=== PATIENT | female | born 1960 | race Caucasian/White ===

== ENCOUNTER → 2016-09-27 | Outpatient (CLI) | payer BC ==
[~2016-09-27] MED LIST: AMB10 PO; AMLO-114 PO; ASPI81TA28 PO; ATOR-22 PO; ATV5 PO; BACL10TA PO; CARI350T28 PO; CHN5 PO; CHOL20007 PO; CONJ.6255 PO; DRGTP75 TD; ELET40TA PO; ESTR2TAB PO; ESTRATEST HS PO; HYDR-3983 PO; KAPIDEX PO; NIFE60TA57 PO; OXYC-57 PO; OXYSR40 PO; PRLSR20 PO; SIMV20TA2 PO; SNQ10 PO; ZOLM1TAB3 PO; losartan PO
[2016-09-27 16:32] LABS: BASO % 0.4 %; BASO ABS # 0.04 K/uL (0-0.2); COMPLETE YES; EOS % 3.3 %; HEMATOCRIT 36.7 % (37-47); IG% 0.3 %; LYMPH % 29.8 %; LYMPH ABS # 3.15 K/uL (1.2-3.4); MEAN CELL VOLUME 89.5 fL (80-100); MEAN CORPUSCULAR HEMOGLOBIN 29.8 pg (25-34); MEAN CORPUSCULAR HGB CONC 33.2 g/dl (32-36); MEAN PLATELET VOLUME 9.6 fL (7.4-10.4); MONO % 7.4 %; NEUT % 58.8 %; PLATELET COUNT 400 K/uL (130-400); WHITE BLOOD COUNT 10.57 K/uL (4.8-10.8)
[2016-09-27 16:58] LABS: ALT/SGPT 14 U/L (12-78); AST/SGOT 11 U/L (15-37); BLOOD UREA NITROGEN 5 mg/dl (7-18); BUN/CREATININE RATIO 7.9 (10-20); CARBON DIOXIDE 32 mmol/L (21-32); CHLORIDE 101 mmol/L (98-107); CREATININE 0.61 mg/dl (0.60-1.20); GLUCOSE 80 mg/dl (70-99); POTASSIUM 4.1 mmol/L (3.5-5.1); SODIUM 138 mmol/L (136-145)
[2016-09-27 17:00] LABS: ALB/GLOB RATIO 1.1 (0.9-2); ALKALINE PHOSPHATASE 91 U/L (45-117)
[2016-09-27 17:58] LABS: URINE APPEARANCE CLEAR (CLEAR); URINE BILIRUBIN NEG (NEG); URINE COLOR YELLOW; URINE EPITHELIAL CELL AUTO >30 /lpf (0-5); URINE NITRITE NEG (NEG); URINE SPECIFIC GRAVITY 1.012 (1.000-1.030); UROBILINOGEN NEG (NEG)
[2016-09-27 18:24] LABS: MANUAL MICROSCOPIC REQUIRED? NO; REVIEW REQ? NO
[2016-10-03 02:35] LABS: ANTI-CENTROMERE AB <1.0 NEG AI (<1.0 NEG); ANTI-SS-A <1.0 NEG AI (<1.0 NEG); ANTI-SS-B <1.0 NEG AI (<1.0 NEG); DNA ds CRITHIDIA NEGATIVE (NEGATIVE); Sm Antibody <1.0 NEG AI (<1.0 NEG)
[2016-10-03 13:25] LABS: ANA TITER > OR = 1:1280 TITER (<1:40)
== END | disposition home or self-care (01) ==
LOC: C.LAB1850 15:22
PROVIDERS: ATTEND Internal Medicine Rheumatology
DX: M79.7 Fibromyalgia (principal); E55.9 Vitamin D deficiency, unspecified; R76.8 Other specified abnormal immunological findings in serum; R77.8 Other specified abnormalities of plasma proteins; M85.80 Other specified disorders of bone density and structure, unspecified site

== ENCOUNTER → 2016-11-06 | Outpatient (CLI) | payer BC | END | disposition home or self-care (01) | LOC: C.PAPS 15:25 | PROVIDERS: ATTEND Obstetrics & Gynecology | DX: Z01.419 Encounter for gynecological examination (general) (routine) without abnormal findings (principal) ==

== ENCOUNTER → 2017-10-21 | Outpatient (CLI) | payer BC ==
[~2017-10-21] MED LIST changes: -ATV5 PO; -BACL10TA PO; -CARI350T28 PO; -CONJ.6255 PO; -DRGTP75 TD; -ELET40TA PO; -ESTRATEST HS PO; -KAPIDEX PO; -NIFE60TA57 PO; -OXYC-57 PO; +TIZA4CAP PO
--- NOTE | 2017-10-22 15:13 | MAMMOGRAPHY REPORT ---
BILATERAL DIGITAL SCREENING MAMMOGRAM TOMOSYNTHESIS WITH CAD: 10/21/2017 CLINICAL HISTORY: Routine screening. Patient has no complaints. TECHNIQUE: Breast tomosynthesis in addition to standard 2D mammography was performed. Current study was also evaluated with a Computer Aided Detection (CAD) system. COMPARISON: Comparison is made to exams dated: 10/18/2016 mammogram, 01/11/2014 mammogram, 12/26/2012 ma mmogram, 12/26/2011 mammogram, 12/25/2010 mammogram, and 12/22/2009 mammogram - [facility] ter. BREAST COMPOSITION: The tissue of both breasts is extremely dense, which lowers the sensitivity of m ammography. FINDINGS: The parenchymal pattern is unchanged. No developing mass, architectural distortion or clus ter of suspicious microcalcifications is seen in either breast. IMPRESSION: ACR BI-RADS CATEGORY 2: BENIGN There is no mammographic evidence of malignancy. A 1 year screening mammogram is recommended. The pa tient will receive written notification of the results. Approximately 10% of breast cancers are not detected with mammography. A negative mammographic report should not delay biopsy if a clinically suggestive mass is present. Genie Evans M.D. ay/:10/21/2017 16:06:24 Secondary Market Manager: Miranda DOUGHERTY(R)(M), [facility] letter sent: Normal 1/2 BI-RADS Code: ACR BI-RADS Category 2: Benign
== END | disposition home or self-care (01) ==
LOC: C.MAMM 11:50
PROVIDERS: ATTEND Obstetrics & Gynecology
DX: Z12.31 Encounter for screening mammogram for malignant neoplasm of breast (principal)

== ENCOUNTER → 2018-01-16 | Outpatient (CLI) | payer BC ==
[~2018-01-16] MED LIST changes: -AMLO-114 PO; +AMLO10TA3 PO; +CARI350T28 PO; -HYDR-3983 PO; -OXYSR40 PO
[2018-01-16 12:45] LABS: BASO % 0.7 %; BASO ABS # 0.05 K/uL (0-0.2); EOS % 1.9 %; EOS ABS # 0.13 K/uL (0-0.5); HEMOGLOBIN 14.3 g/dL (12.0-16.0); IG# 0.01 K/uL (0.00-0.02); LYMPH % 41.4 %; MEAN CELL VOLUME 87.3 fL (80-100); MEAN CORPUSCULAR HEMOGLOBIN 29.7 pg (25-34); MEAN PLATELET VOLUME 9.8 fL (7.4-10.4); MONO % 8.9 %; MONO ABS # 0.62 K/uL (0.11-0.59); NEUT ABS # 3.29 K/uL (1.4-6.5); PLATELET COUNT 314 K/uL (130-400); RED CELL DISTRIBUTION WIDTH CV 15.8 % (11.5-14.5); RED CELL DISTRIBUTION WIDTH SD 50.6 fL (36.4-46.3)
[2018-01-16 13:37] LABS: ALKALINE PHOSPHATASE 80 U/L (45-117); ALT/SGPT 31 U/L (12-78); CREATININE 0.65 mg/dl (0.60-1.20); TOTAL PROTEIN 7.2 gm/dl (6.4-8.2)
[2018-01-16 13:42] LABS: AST/SGOT 22 U/L (15-37)
[2018-01-20 15:10] LABS: ANA SCREEN TC 249X POSITIVE (NEGATIVE); ANTI-SS-A <1.0 NEG AI (<1.0 NEG); ANTI-SS-B <1.0 NEG AI (<1.0 NEG); COMPLEMENT C4** TC 44982E 19 MG/DL (15-57)
[2018-01-22 08:26] LABS: ANA TITER > OR = 1:1280 TITER (<1:40)
== END | disposition home or self-care (01) ==
LOC: C.LAB1850 11:29
PROVIDERS: ATTEND Internal Medicine Rheumatology
DX: E55.9 Vitamin D deficiency, unspecified (principal); R76.8 Other specified abnormal immunological findings in serum; M85.80 Other specified disorders of bone density and structure, unspecified site; M34.1 CR(E)ST syndrome

== ENCOUNTER → 2018-01-31 | Day surgery (SDC) | payer BC ==
[2018-01-28 16:08] VITALS: BMI 23.0
--- NOTE | 2018-01-30 14:35 | History and Physical ---
History & Physical Date of Service Jan 30, 2018. History & Physical Chief Complaint rm#[id number] here for discussion about poss aorto bifem, [place] History of Present Illness I the pleasure of seeing Mrs. Gunderson today for evaluation of her lower extremity pain. 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 Since then she is developed claudication symptoms in her lower extremity on both sides. She claims that that very short distances of approximately 15 feet. If she walks a block she has to stop 3 times. She describes the pain as a burning pain that starts in her legs and goes up to her buttock. Both sides are the same in intensity. She also says that the burning pain occurs while standing at home. She does claim that she does get the burning pain in the morning when she gets up out of bed and sometimes is present at night. She denies any ulcerations of her feet she denies any significant symptoms of rest pain. She has had multiple workup for this problem. She was scheduled for an aortobifemoral bypass at another institution. She also gives a history of fibromyalgia, scleroderma, and Raynaud's. She has had a cardiac workup recently which was negative for significant coronary disease. Review of Systems 10 system review of system was asked. Only positive findings were intolerance to cold joint swelling heartburn in the history of present illness complaints. Physical Exam Vitals & Measurements HR: 103 (Monitored) BP: 162/74 SpO2: 99% WT: 60.9 kg Physical exam: The patient is awake oriented x3 she is in no apparent distress she has normal body habitus. Her blood pressure is 162/74 in the right 156/70 in the left. Head and neck within normal limits there are no carotid bruits lungs are clear. Heart had a regular rate and rhythm. Abdominal exam is benign. There is noaneurysmal dilatation of the aorta. Her femoral pulses are +2 bilaterally. Dorsalis pedis are +2 bilaterally. The posterior tibial pulses are +1 bilaterally. There is good capillary refill in both feet. There is no significant neurological deficits either lower extremity. Assessment/Plan 1.Aorto-iliac atherosclerosis Plan: At this point in time I am not sure an aortobifemoral bypass would benefit this patient. Her pertinent findings from her previous workup was a significant drop in pressure after her walking treadmill. She dropped from a 0.85 index to an index in the 0.4 range. This was seen on both sides. She also has an SMA stenosis which may have worsened over the last few years but gives no signs of abdominal complaints consistent with mesenteric ischemia. In view of her walking treadmill findings I believe the best thing would be to do an arteriogram of her abdominal aorta and runoffs. We will also measure pressures in the left iliac system. If there is a focal stenosis in the left iliac he may benefit from stent placement. If there is significant drop off sooner her aortic pressures during the pull-through then she may benefit from the aortobifemoral bypass. We will make a decision on what the best approach to this patient either surgically, endovascularly, or just observation after the arteriograms performed. Thank you very much for letting us participate in the care of this patient. Sincerely, LINDA Kwok MD Problem List/Past Medical History Ongoing Aorto-iliac atherosclerosis CREST syndrome Hyperlipidemia Hypertensive disorder Systemic sclerosis Tobacco abuse Historical No qualifying data Procedure/Surgical History Esophagogastroduodenoscopy (04/09/2012), Cholecystectomy planned (2010), Laparoscopy (07/13/2009), Colonoscopy (2008), Esophagogastroduodenoscopy (06/14/2009), Esophagogastroduodenoscopy (2003 ), Cervical vertebral fusion. (2001), Hysterectomy (1999). Medications Inpatient No active inpatient medications Home acetaminophen-HYDROcodone 325 mg-7.5 mg oral tablet, 1 tab, PO, qid, PRN Ambien 10 mg oral tablet, 10 mg= 1 tab, PO, qhs , PRN aspirin 81 mg oral delayed release tablet, 81 mg= 1 tab, PO, Daily doxepin 100 mg oral capsule, 100 mg= 1 cap, PO, qhs estradiol 1 mg oral tablet, 1 mg= 1 tab, PO, Daily losartan 100 mg oral tablet, 100 mg= 1 tab, PO, Daily Norvasc 5 mg oral tablet, 5 mg= 1 tab, PO, Daily omeprazole 40 mg oral delayed release capsule, 40 mg= 1 cap, PO, Daily Soma 350 mg oral tablet, 350 mg= 1 tab , PO, 5x/Day Vitamin D3 5000 intl units oral tablet, 5000 Int_Unit= 1 tab, PO, Daily Zomig 5 mg oral tablet, 5 mg= 1 tab, PO, ONCE, PRN Allergies Imitrex ( severe headache) Family History Brain cancer..: Father. Diabetes: Mother. Electronic Signature on File Electronically Reviewed/Signed by: Raghav Kwok MD Author Signature Dt/Tm: 11:12 AM [employer] Manager Surendra Sheehan [facility] [place], [address] [place] [address] EJS Result Type: Physician Consult Date of Service: January 23, 2018 11:12 EDT Authorization Status: Final Subject: Consult Note Author or Import Date: MD Kwok Eugene J on January 23, 2018 11:12 EDT Verified By: MD Kwok Eugene J on January 23, 2018 11:12 EDT Encounter info: [id number], [facility], Clinic, 01/23/2018 - 01/23/2018
[~2018-01-31] VITALS: Ht 160 cm; Wt 59.1 kg
[2018-01-31] VITALS (7 sets, daily range): BP systolic 117–164; BP diastolic 58–95; PULSE 77–86; TEMP 36.4–36.5; O2SAT 98–100; Ht 160 cm; Wt 59.1 kg
[~2018-01-31] MED LIST changes: -AMB10 PO; +ATROPINE SULFATE 0.1 MG/ML 5ML SYR IV PRN; +BTLAI; +CEFAZOLIN 1000MG IV PUSH 7.5 ML IV SCH; -CHN5 PO; -CHOL20007 PO; +CHOLCAP5 PO; +CLINDAMYCIN 600 MG/54 ML D5W IV SCH; +CLINDAMYCIN IV 600 MG in DEXTROSE 5% 50ML 50 ML IV ONE; +DOXE100C4 PO; +EpHEDrine SULFATE INJ 50 MG/ML AMP IV PRN; +FENTANYL CITRATE INJ 50 MCG/1 ML 2 ML VIAL IV PRN; +FENTANYL CITRATE INJ 50 MCG/1 ML 2 ML VIAL ONE; +HEPARIN SOD (PORCINE) 1000 UNIT/ML 10 ML VIAL ONE; +HYDR-3983 PO; +HYDROCODONE/ACETAMIN 5/325MG TAB PO PRN; +IODIXANOL (VISIPAQUE) 270 MG/ML 150ML IV ONE; +KETAMINE HCL INJ 50 MG/ML 10 ML VIAL ONE; +LACTATED RINGER'S 1000ML 1,000 ML IV SCH; +LIDOCAINE HCL 1% 20 ML VIAL SQ ONE; +LIDOCAINE HCL 2% 2 ML VIAL (20MG/ML) ONE; +LOSA1TAB38 PO; +MIDAZOLAM HCL 1 MG/ML 2ML VIAL ONE; +ONDANSETRON INJ 2 MG/ML 2 ML VIAL IV PRN; +PROPOFOL IV EMULSION 10 MG/ML 20 ML VIAL ONE; -SNQ10 PO; +SODIUM CHLORIDE 0.9% 1000ML IV SCH; -TIZA4CAP PO; -ZOLM1TAB3 PO; +ZOLP10TA PO; -losartan PO
[2018-01-31 06:18] LABS: PTT PATIENT 29.8 SECONDS (21.0-31.0)
[2018-01-31 06:51] LABS: CALCIUM 8.8 mg/dl (8.5-10.1); CREATININE 0.6 mg/dl (0.60-1.20); POTASSIUM 3.8 mmol/L (3.5-5.1)
--- NOTE | 2018-01-31 06:54 | DIAGNOSTIC IMAGING REPORT ---
CHEST 2 VIEWS ROUTINE CLINICAL HISTORY: 57 years-old Female presenting with PREOPERATIVE EXAM. TECHNIQUE: PA and lateral views of the chest were obtained. COMPARISON: 07/13/2009. FINDINGS: Atherosclerosis of the aortic arch. Cardiac silhouette normal in size. Pleural-parenchymal scarring at the apices has increased from prior. There is also suggestion of greater than expected opacity in the region of the right upper lung, which is most prominent on lateral view. No pleural effusion or pneumothorax. Degenerative changes of the thoracic spine. Cholecystectomy clips noted. IMPRESSION: 1. Increased pleural-parenchymal scarring at the apices with suggestion of a right upper lobe infiltrate. Further evaluation with chest CT to be considered. The report will be called/faxed according to standard departmental protocol. Electronically signed by: Bladimir Mendes M.D. 01/31/2018 6:53 AM Dictated Date/Time: 01/31/2018 6:51 AM
--- NOTE | 2018-01-31 07:51 | History & Physical Bridge Note ---
H&P Re-Evaluation Bridge Note: I have examined the patient, reviewed the History & Physical and in the interval since the performance of the History & Physical I have noted the following changes of clinical significance: No changes noted
--- NOTE | 2018-01-31 09:02 | [facility] Post Operative Brief Note ---
Immediate Operative Summary Operative Date Jan 31, 2018. Pre-Operative Diagnosis Claudication, Left Iliac Artery Stenosis. Post-Operative Diagnosis Claudication. Procedure(s) Performed Aortogram With Bilateral Run Off, Mechanical Closure of Left Femoral Artery. Surgeon Dr. Kwok Puffer Tender Surgeon(s) Linda Washburn MD Estimated Blood Loss 5 Findings Consistent with Post-Op Diagnosis Specimens None Drains None Anesthesia Type MAC Complication(s) none Disposition Accompanied Pt To Recover: no Disposition: Recovery Room / PACU
--- NOTE | 2018-01-31 09:03 | Discharge Instructions ---
Discharge Instructions Date of Service Jan 31, 2018. Visit Reason for Visit: Aorto Iliac Occlusive Disease Discharge Discharge Diagnosis / Problem: Claudication Discharge Goals Goal(s): Diagnostic testing Activity Recommendations Activity Limitations: per Instructions/Follow-up section Anesthesia . Post Anesthesia Instructions: If you have had General Anesthesia or IV Sedation: * Do not drive today. * Resume driving when surgeon permits. * Do not make important decisions or sign legal documents today. * Call surgeon for: 1. Temperature elevations greater than 101 degrees F. 2. Uncontrollable pain. 3. Excessive bleeding. 4. Persistent nausea and vomiting. 5. Medication intolerance (nausea, vomiting or rash). * For nausea and vomiting use only clear liquids such as: tea, soda, bouillon until nausea subsides, then gradually increase diet as tolerated. * If you have any concerns or questions, call your surgeon's office. If physician is unavailable and it is an emergency, call 911 or go to the nearest emergency room. . Instructions / Follow-Up Instructions / Follow-Up Call [phone] to schedule a follow up appointment if one not already scheduled. SPECIAL CARE INSTRUCTIONS: Medications: * Continue to take your medications as directed. If you have been given a prescription for Plavix, please fill it immediately and take as directed. Incision Care: * Your puncture site may have some bruising and minor swelling for about one week. * You will have a small dressing covering your puncture site. You may remove the dressing after 24 hours and shower. You may let the warm soapy water run over it, but be sure to dry the puncture site well and keep it dry. * DO NOT IMMERSE THE INCISION IN A TUB/POOL/etc. UNTIL HEALED. * Puncture sites should be kept covered with a band-aid until it begins to heal. Restrictions: * Depending on whether you leg or arm was punctured to access the arteries, you will be required to lay flat, hold your arm still, or both, for about 4 hours after the procedure to prevent bleeding. * Limit your activity for the first 48 hours. You may walk and go up and down steps. Avoid excessive bending or movement at the puncture site. Possible Complications: * Excessive Swelling - after blood flow is improved you may notice increased swelling in the lower legs. This is a normal response. This usually depends on the amount of blockages in the leg, how long they have been there prior to your procedure and how much blood flow was restored. Elevating your legs will help to improve this. Please notify our office ([phone] ) if the swelling does not go away after lying in bed overnight. * Infection/Drainage/Bleeding - Drainage or bleeding from the puncture site should be minimal. If you have excessive bleeding or drainage, call our office ([phone]) right away. * Pain - You may experience some mild pain or soreness at your puncture site. If your pain does not improve, please contact our office ([phone]). Call your doctor and seek emergent treatment if you develop: * Temperature above 101 degrees * Any fever or chills * Any redness or purulent drainage from the puncture site * Any new dusky/blue colored toes or feet with coolness or sharp or aching pain. SKIN IRRITATION: * You may experience some redness and/or swelling in the area where radiation was administered. If any skin irritation occurs, please contact your family physician. FOLLOW UP VISIT: Keep any scheduled doctor appointments. Diet Recommendations Recommended Home Diet: resume previous diet Procedures Procedures Performed: Aortogram With Bilateral Run Off, Mechanical Closure of Left Femoral Artery. Pending Studies Studies pending at discharge: no Medical Emergencies . Who to Call and When: Medical Emergencies: If at any time you feel your situation is an emergency, please call 911 immediately. . Non-Emergent Contact Non-Emergency issues call your: Surgeon . . "Provider Documentation" section prepared by Raghav Kwok. .
--- NOTE | 2018-01-31 09:13 | [facility] Operative Report ---
Operative Report Operative Date Jan 31, 2018. Pre-Operative Diagnosis Claudication, Left Iliac Artery Stenosis. Post-Operative Diagnosis Claudication. Procedure(s) Performed Aortogram With Bilateral Run Off, Mechanical Closure of Left Femoral Artery. Surgeon Dr. Kwok Plumbing Drafter Surgeon(s) Linda Washburn MD Estimated Blood Loss 5 Findings No significant stenosis in aorta, left iliac or femoral-femoral artery bypass. 3 vessel runoff bilaterally. Specimens None Drains None Anesthesia Type MAC Complication(s) none Disposition Recovery Room / PACU Indications The patient is a 57 year old female who presents with bilateral lower extremity short distance claudication. She is status post left to right femoral-femoral bypass in 2014 performed in [place]. The risks, benefits and alternatives of the procedure were discussed with her and she agreed to proceed. Description of Procedure The patient was brought to the angio suite and placed in the supine position. She was given preoperative antibiotics with Clindamycin. Local anesthesia was administered. The left common femoral artery was accessed under ultrasound guidance distal to the site of the femoral-femoral bypass. A 5 Fr sheath was placed. An 0.035 angled glidewire was easily advanced to the aorta. A 5 Fr Merit pigtail catheter was placed in the aorta and aortogram was completed with power injection. The bilateral renal arteries showed no evidence of stenosis. Known occlusion of the right common iliac artery. No significant stenosis of aorta or left common and external iliac. Bilateral runoff was completed which showed no stenosis of the femoral-femoral bypass and 3 vessel runoff to the feet bilaterally. The pigtail catheter was removed. A 5 Fr straight glide cath was inserted and pullback pressures were measured which showed no significant drop in pressures through the aorta into the left iliac artery. The catheter and sheath were removed. The puncture site was closed with the Starclose device which partially closed. Pressure was held over the left femoral artery and hemostasis was achieved. The patient tolerated the procedure well and was brought to the PACU in good condition. Dr. Kwok was present and scrubbed for the entire procedure. I attest to the content of the Intraoperative Record and any orders documented therein. Any exceptions are noted below.
--- NOTE | 2018-01-31 09:38 | Anesthesiology Progress Note ---
Anesthesia Post Op Note Date & Time Jan 31, 2018 at 09:38 Vital Signs Pain Intensity: 0 Vital Signs Past 12 Hours Date Time Temp Pulse Resp B/P (MAP) Pulse Ox O2 Delivery O2 Flow Rate FiO2 01/31/18 09:15 36.2 78 19 112/59 99 Room Air 01/31/18 06:19 36.5 82 20 147/79 (101) 100 Room Air Notes Mental Status: alert / awake / arousable, participated in evaluation Pt Amnestic to Procedure: Yes Nausea / Vomiting: adequately controlled Pain: adequately controlled Airway Patency, RR, SpO2: stable & adequate BP & HR: stable & adequate Hydration State: stable & adequate Anesthetic Complications: no major complications apparent
== END | disposition home or self-care (01) ==
LOC: C.ACU 05:33
PROVIDERS: ATTEND Surgery Vascular Surgery
DX: I70.203 Unspecified atherosclerosis of native arteries of extremities, bilateral legs (principal); M79.7 Fibromyalgia; J44.9 Chronic obstructive pulmonary disease, unspecified; I10 Essential (primary) hypertension; Z87.891 Personal history of nicotine dependence; Z88.0 Allergy status to penicillin; Z88.1 Allergy status to other antibiotic agents